=== PATIENT | female | born 1960 | race Caucasian/White ===

== ENCOUNTER → 2017-11-06 | Outpatient (CLI) | payer SELFPAY | LOC: HHS 08:59 | DX: Z12.83 Encounter for screening for malignant neoplasm of skin (principal) ==

== ENCOUNTER 2020-05-17 10:28 | Day surgery (SDC) | payer OTHER ==
[~2020-05-17 10:28] MED LIST: PROPOFOL INJ 200 MG/20 ML VIAL IV ONE
[2020-05-17] MEDS ORDERED: PROPOFOL INJ 200 MG/20 ML VIAL IV ONE (14:00)
[2020-05-17 14:44] VITALS: BP 112/83
--- NOTE | 2020-05-17 15:04 | Discharge Summary ---
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 Date of Surgery: 05/17/20 Discharge Date: 05/17/20 Condition: Good Forms: EU Anesthesia D/C Instructions, Discharge POC-Surgical Service Treatment or Instructions: see attached care notes Referrals: SILVIA YOUNG MD [Primary Care Provider] - KARLOS HORTON MD [ACTIVE STAFF] - Discharge Diet: As Tolerated Respiratory Treatments at Home: Deep Breathing/Coughing, Incentive Spirometer Discharge Activity: Activity As Tolerated, Balance Activity w/Rest Home Care Assistance: None Needed Report the Following to Your Physician Immediately: Shortness of Breath, Nausea, Vomiting, Increase in Pain, Yellow Skin, Fever over 101 Degrees, Unusual Bleeding, Redness, Swelling, Warmth, Increased Soreness, Drainage-Yellow, Drainage-Christensen, Drainage-Green, Drainage-Foul Smelling, Increased Vaginal Bleed, Large Clots, Numbness, Tingling Sensation, Visual Disturbance, Weight Gain 2- 3lbs a day, Weight Gain 3-5lbs a week, Wheezing, Seizure, IV Site Infection Signs, Urinary Infection Signs
--- NOTE | 2020-05-17 15:11 | Operative Report ---
Nonrecallable Operative Report DATE OF SURGERY: 05/17/20 PREOPERATIVE DIAGNOSIS: Positive Cologuard test POSTOPERATIVE DIAGNOSIS: 1. small ascending colon polyp. 2. multiple rectal polyps. 3. submucosal lipoma of the hepatic flexure. OPERATION: 1. Colonoscopy to the cecum. 2. Hot biopsy of small ascending colon polyp. 3. Hot snare polypectomy of multiple rectal polyps. 4. Cold biopsy of submucosal lipoma of the hepatic flexure. SURGEON: KARLOS HORTON ANESTHESIA: LMAC TISSUE REMOVED OR ALTERED: 1. Small ascending colon polyp. 2. biopsy of submucosal lipoma with hepatic flexure. 3. Multiple rectal polyps. COMPLICATIONS: None apparent ESTIMATED BLOOD LOSS: Minimal PROCEDURE: Procedure in detail: After informed consent was obtained, the patient was brought to the operating room and laid in the left lateral decubitus position. The endoscope was inserted into the rectum. The scope was passed up the rectum, sigmoid colon, descending colon, across the transverse colon, down the ascending colon, and into the cecum. The ileocecal valve and appendiceal orifice were identified. The scope was then withdrawn, circumferentially noting the mucosa. The prep was good. The scope was withdrawn past the ascending colon. In the ascending colon there was a small, diminutive polyp identified. It was removed in its entirety via hot biopsy forcep. The Scope was withdrawn past the hepatic flexure where a large submucosal lipoma was identified. The mucosa appeared normal overlying the lipoma, however biopsy was taken to ensure no pathologic abnormality. This was done using cold biopsy forcep. The Scope was withdrawn past the transverse colon, down the descending colon, sigmoid colon, and into the rectum. In the rectum there were 5 polyps situated in close proximity to one another. Hot snare polypectomy was used to remove all 5 polyps. A retroflexion maneuver was performed in the rectum, noting no significant internal hemorrhoids. The scope was straightened, air was suctioned from the rectum, the scope was removed, and the procedure was concluded. All sponge, instrument, and needle counts were correct x2. Condition: Stable.
== END 2020-05-17 14:27 | disposition home or self-care (01) ==
LOC: END 10:28
PROVIDERS: ATTEND Surgery
DX: D12.2 Benign neoplasm of ascending colon (principal); D17.79 Benign lipomatous neoplasm of other sites; K62.1 Rectal polyp; K57.30 Diverticulosis of large intestine without perforation or abscess without bleeding; E11.9 Type 2 diabetes mellitus without complications; F41.9 Anxiety disorder, unspecified; M54.9 Dorsalgia, unspecified; R12 Heartburn; E66.9 Obesity, unspecified; Z79.84 Long term (current) use of oral hypoglycemic drugs; Z79.899 Other long term (current) drug therapy; Z20.828 Contact with and (suspected) exposure to other viral communicable diseases; Z87.891 Personal history of nicotine dependence
CPT/HCPCS: 45384; 45385; 82962; 88305 ×2; 00812; U0003 ×2; J2704; C9803 ×2; 812; 87635